=== PATIENT | male | born 2000 | race Caucasian/White ===

== ENCOUNTER 2023-05-02 16:43 | Emergency (ER) | payer OTHER, SELFPAY ==
[2023-05-02 16:52] VITALS: BP 146/91; PULSE 78; RESP 18; TEMP 36.6; O2SAT 98
--- NOTE | 2023-05-02 17:09 | ED.WOUNDLAC1 ---
HPI - Wound/Laceration General Chief Complaint: Wound/Laceration Stated Complaint: LACERATION/PUNCTURE Time Seen by Provider: 05/02/23 16:54 Source: patient Mode of arrival: walk-in Limitations: no limitations History of Present Illness HPI narrative: 23 year old male presents to the ED for a laceration to his left index finger. He accidentally cut himself with a knife today while slicing vegetables. Reports his last tetanus update was 2-3 years ago. Denies fever, chills, weakness, N/T. Rates his pain 3/10 at this time. Related Data Allergies Allergy/AdvReac Type Severity Reaction Status Date / Time meperidine [From Demerol] AdvReac Intermediate Verified 05/02/23 17:03 Review of Systems ROS Constitutional Denies: fever or chills Cardiovascular Denies: chest pain Respiratory Denies: shortness of breath Integumentary/Breast Reports: other (laceration) Neurological Denies: numbness in extremities PFSH PFSH Social History Smoking status: Light tobacco smoker Exam Constitutional Vital Signs, click to edit/add: Last Vital Signs Temp 97.8 F 05/02/23 16:52 Pulse 78 05/02/23 16:52 Resp 18 05/02/23 16:52 BP 146/91 H 05/02/23 16:52 Pulse Ox 98 05/02/23 16:52 Common normals: no apparent distress and oriented x3 General appearance: cooperative Eye Common normals: no scleral icterus Neck & C-Spine Common normals: supple Chest Chest: symmetrical chest wall rise Respiratory Common normals: normal respiratory effort Effort & inspection: symmetric chest movement Cardio Common normals: regular rate Extremity Other: 5 mm laceration to left index finger on anterior mid aspect of the digit. No active bleeding. Distal sensation intact. Wound appears superficial. Full ROM to all joints of the digit. Cap refill <3 sec. Neuro Common normals: oriented x3 and moves all extremities Sensorium/orientation: awake and alert Course Vital Signs Vital signs: Vital Signs Temperature 97.8 F 05/02/23 16:52 Pulse Rate 78 05/02/23 16:52 Respiratory Rate 18 05/02/23 16:52 Blood Pressure 146/91 H 05/02/23 16:52 Pulse Oximetry 98 05/02/23 16:52 Temperature 97.8 F 05/02/23 16:52 Pulse Rate 78 05/02/23 16:52 Respiratory Rate 18 05/02/23 16:52 Blood Pressure 146/91 H 05/02/23 16:52 Pulse Oximetry 98 05/02/23 16:52 MDM - Wound/Laceration MDM Narrative Medical decision making narrative: His wound was cleansed with Hibiclens. He declined lidocaine. Sutures were placed utilizing sterile procedure. The patient was draped in a sterile fashion. Two 5-0 Prolene simple interrupted sutures were placed. He tolerated the procedure well. A dressing and finger splint were applied. The application was checked and was appropriate; the LUE remained NVI. Follow up with pcp for a recheck. Suture removal in 10-14 days. Medical Records Attestation: I reviewed the patient's medical records. Discharge Plan Discharge Chief Complaint: Wound/Laceration Clinical Impression: Finger laceration Patient Disposition: Home, Self-Care Time of Disposition Decision: 17:28 Condition: Good Mode of Transportation: Private Vehicle Instructions: Finger Laceration (ED) Additional Instructions: The stitches will need to be removed in 10-14 days. Watch for signs of infection: redness, purulent drainage, increased warmth, swelling. Keep the wound clean and dry. Do not soak the wound. Gentle cleansing with soap and water is okay. Stand Alone Forms: Portal Instructions Referrals: Angel Kendrick MD [Primary Care Provider] - 1 week Discharge Date/Time: 05/02/23 17:45
[2023-05-02] MEDS: LIDOCAINE HCL 1% 100 MG/10 ML MDV INJ (17:13)
== END 2023-05-02 17:45 | disposition home or self-care (01) ==
PROVIDERS: Emergency Provider Emergency Medicine; PCP Family Medicine
DX: S61.211A Laceration without foreign body of left index finger without damage to nail, initial encounter (principal); W26.0XXA Contact with knife, initial encounter; F17.210 Nicotine dependence, cigarettes, uncomplicated
CPT/HCPCS: 12002; 99284